=== PATIENT | female | born 2000 | race Caucasian/White ===

== ENCOUNTER → 2020-06-30 13:14 | Outpatient (CLI) | payer OTHER, MEDICAID, SELFPAY ==
--- NOTE | 2020-06-30 16:48 | SP.MBSS_ITS ---
Modified Barium Swallow - Patient Information Study Date: 06/30/20 Study Time: 13:20 Direct Billable Minutes: 70 Total Minutes procedure & reportin Diagnosis: Dysphagia (R13.12) Referring Physician: Osmin Hughes Reason for Referral: The patient is a 19 year old female referred for a modified barium swallow (MBS) study to objectively assess the patients oropharyngeal swallow function under fluoroscopy secondary to the diagnosis of Mowat Andrew syndrome. Her mother reports that she has been refusing thin liquids over the past few months, though will consume nectar thickened. She does appear to tolerate pureed textures, though at times this can fluctuate. She is completely dependent with feeding, though prior to the pandemic she was able to drink from a cup with success. She has appeared to regress throughout the adjustments in her school schedule secondary to the COVID-19 pandemic, which has also resulted in changes in her caregiver staff. Her mother reports no recent pulmonary based complications, no changes in weight (mild increase). Medical History: Mowat Andrew syndrome, non-verbal status, blind, seizure disorder, pulmonary stenosis, kidney disease, gastroesophageal reflux disease, pharyngitis, status post tonsillectomy. - Penetration-Aspiration Scale Score Aldine thickened liquids via cup (single sip): Result: 1= does not enter airway Pudding Result: 1= does not enter airway Thin liquid - 5 mL tsp.: (1) Result: 1= does not enter airway Thin Liquid Result: 1= does not enter airway - Oral Phase Labial Seal: Interlabial escape, no progression to anterior lip Bolus Transport/Lingual Motion: Brisk tongue motion Oral Residue: Trace residue lining oral structures - Pharyngeal Phase Initiation of Pharyngeal Swallow: Bolus head in pyriforms Soft Palate Elevation: No bolus between soft palate and pharyngeal wall Laryngeal Elevation: Partial superior movement thyroid cart/partial apprx aryt- epig petiole Anterior Hyoid Excursion: No anterior movement Epiglottic Movement: Complete inversion Laryngeal Vestibule Closure at Height of Swallow: Complete; no air/contrast in laryngeal vestibule Pharyngeal Stripping Wave: Present - diminished Pharyngoesophageal Segment Opening: Parital distension and partial duration; parital obstruction of flow Tongue Base Retraction: Trace column of contrast between tongue base & post. pharyngeal wall Pharyngeal Residue: Complete pharyngeal clearance - Diagnosis/Impression Diagnosis: Dysphagia (R13.12) Impression: The patient presents with mild to moderate oropharyngeal dysphagia (DSRS: 3; DCS: D0), with no presence of penetration or aspiration secondary to the diagnosis of Mowat Andrew syndrome. She demonstrates a rather quick oral transition of the bolus to the pharyngeal arena which leads to pharyngeal dyssynchrony and would elevate her likelihood for an aspiration related event to occur particularly with suboptimal positioning and larger bolus sizes. Solid textures were held, as her mother repo rts that there is no reasonable assumption that she will succeed with solids based on experience. The study was limited by inconsistent participation from the patient, which was known heading into the study (she did participate better than was anticipated), with limited trials completed due to patient refusal. Primary concerns appear to center more on behavioral based intake concerns vs. a mechanically based dysphagia, as there is a possibility that she has some form of texture / taste aversions, though more likely she may require behavioral interventions focusing on caregiver training (particularly if there are multiple caregivers that are not experienced with the patient) and implementation of compensatory equipment that focuses on bolus flow reductions, which will likely require trial and error through clinical judgement to identify appropriate flow adjustments. - Recommendations Comment: DIET TEXTURE RECOMMENDATIONS: pureed textured (IDDSI: 4), thin liquid diet (IDDSI: 0) diet RECOMMENDED COMPENSATORY STRATEGIES: direct supervision with assistance, reduced bolus volume / rate of ingestion with use of bolus flow restricted devices as a ppropriate, seated upright at 90 degrees during PO intake, remain upright for 30-60 minutes post meal (GERD precaution) Education Completed: 1. Described result of evaluation., 4. Family/caregivers understand evaluation & agree w/ goals & tx plan. - Image Count: [id number] - Status Active ST Patient: Not Active - Contact Information [facility] Speech Therapy:: Rod Hameed M.A., MARIJA-PAINTING INSTRUCTOR, CBIS MBSImP Certified, LSVT Certified [facility] Speech-Language Pathology Department Email: [email or web address]
== END ==
PROVIDERS: PCP Pediatrics; Referring Provider Pediatrics; Visit Provider Pediatrics
DX: R13.10 Dysphagia, unspecified (principal)
CPT/HCPCS: 74230; 92611

== ENCOUNTER → 2022-01-06 | Outpatient (CLI) | payer OTHER, MEDICAID, SELFPAY ==
--- NOTE | 2022-01-06 09:35 | RAD_ITS ---
STUDY: UPPER GI SERIES. REASON FOR EXAM: Female, 21 years old. ALTERED APPETITE RADIATION DOSAGE (If Supplied By Facility): CTDIvol = ( ) mGy, DLP = ( ) mGycm. Individualized dose optimization techniques were used for this CT.? FLUOROSCOPY TIME (if supplied): ( 22 seconds ) minutes/seconds. 26 images were obtained. TECHNIQUE: Limited study due to the patient''s physical condition. COMPARISON: None. FINDINGS: There is circumferential narrowing of the distal esophagus at the gastroesophageal junction. Correlation with endoscopy is recommended. Limited visualization of the stomach was obtained. No amount is seen. RAD/Upper GI Single Contrast IMPRESSION: Circumferential narrowing of the distal esophagus at the gastroesophageal junction. Correlation with endoscopy is recommended. Electronically Signed: Kenney Briggs MD at 10:54 EDT ,
== END | disposition home or self-care (01) ==
PROVIDERS: PCP Pediatrics; Referring Provider Pediatrics; Visit Provider Pediatrics
DX: R63.8 Other symptoms and signs concerning food and fluid intake (principal)
CPT/HCPCS: 74240

== ENCOUNTER 2023-10-24 10:23 | Emergency (ER) | payer OTHER, MEDICAID, SELFPAY ==
[2023-10-24 10:24] VITALS: BP 80/66; PULSE 95; RESP 16; TEMP 36.4; O2SAT 99
--- NOTE | 2023-10-24 10:32 | EX.ED.VIS.UR ---
HPI HPI - URI History of Present Illness Chief Complaint: Cold Sx Informant: parent Limited: other (Patient is nonverbal.) Onset/Context/Timing Onset: Days (10) Context: Gradual Onset Timing: Continuous Associated Symptoms Associated Symptoms: Positive for Headache and Sinus Pressure; Negative for Vomiting, Diarrhea, Nonproductive cough, Hemoptysis or Productive Cough Narrative Narrative: Patient presents with increased agitation and sinus drainage that has been getting worse over the past 10 days. Patient is nonverbal. Mother states the patient has been more agitated like she is in pain. Mother states that patient started with some brown sinus drainage 10 days ago. Mother denies any fevers or chills. Mother also states that the patient fell on the bus going to her workshop while she was sitting in her wheelchair. Patient hit her head and right ribs at that time. Mother also states that the patient has been having more urinary accidents. Mother states patient is only partially potty trained. ROS ROS ED Review of Systems ROS Unobtainable: due to mental condition and due to mental status Constitutional Constitutional ED: Denies chills or fever(s) PFSH PFSH Home Medications lansoprazole 30 mg capsule,delayed release (Prevacid) 30 mg PO BID 05/19/13 [History Last Taken 05/19/13] levetiracetam 1,000 mg tablet 1,000 mg PO Q12H 05/19/13 [History Last Taken 05/19/13] nitrofurantoin macrocrystal 50 mg capsule 50 mg PO DAILY 05/19/13 [History Last Taken 05/19/13] polyethylene glycol 3350 17 gram oral powder packet 17 g PO BID 05/19/13 [History Last Taken 05/19/13] psyllium husk (aspartame) 3.4 gram oral powder packet (Metamucil Fiber Singles) 1 packet PO DAILY 05/19/13 [History Last Taken 05/19/13] promethazine 12.5 mg rectal suppository (Promethegan) 12.5 mg RECTAL Q6H PRN PRN Vomiting ##10 05/20/13 [Rx Last Taken Unknown] Allergy/AdvReac Type Severity Reaction Status Date / Time cefixime [From Suprax] Allergy Other Verified 10/24/23 10:27 cefprozil [From Cefzil] Allergy Hives Verified 10/24/23 10:27 ceftriaxone Allergy Unknown Verified 10/24/23 10:27 oxcarbazepine Allergy Hives Verified 10/24/23 10:27 [From Trileptal] piperacillin Allergy Hives Verified 10/24/23 10:27 Surgical History (Updated 10/24/23 @ 10:[address] Daniel Blackburn DO) History of tonsillectomy and adenoidectomy Hx of valvuloplasty Social History Smoking Status: Never smoker EXAM Physical Exam Const Vital Signs: 10/24/23 10:24 10/24/23 10:24 10/24/23 10:32 Temperature 97.5 F L 97.5 F L Temperature Source Temporal Temporal Pulse Rate 95 95 Respiratory Rate 16 16 Respiratory Effort Normal Non-Labored Respiratory Pattern Tachypnea Blood Pressure 80/66 L 80/66 L Blood Pressure Mean 70 70 Pulse Ox 99 99 Oxygen Delivery Method Room Air Room Air Positive well nourished and well developed General Appearance ED: well developed and NAD HEENT Reports moist mucous membranes Neck supple and no JVD Resp normal respiratory effort and clear to auscultation bilaterally Cardio Rate: regular rate Rhythm: regular rhythm GI non-distended Palpation: soft Extremity full ROM Neuro no sensory deficits noted Sensorium / Orientation: alert Motor Exam: strength 5/5 throughout Psych Attitude: agitated MDM MDM MDM Narrative Medical decision making narrative: Differential diagnosis includes closed head injury, sinusitis, rib contusion, rib fracture, urinary tract infection, and viral illness. CT scan of the brain will be obtained to assess for intracranial bleeding and sinusitis. Chest x-ray will be obtained to assess for rib fracture and pneumothorax. Urinalysis will be obtained to assess for urinary tract infection and hematuria. COVID-19, influenza, and RSV PCR will be obtained to assess for viral infection. Lab Data Attestation: I reviewed the patient's lab results. Lab results narrative: Urinalysis was reviewed. There is no evidence of urinary tract infection or hematuria. COVID-19 PCR was reviewed and was negative. Influenza PCR was reviewed and was negative for influenza A and influenza B. RSV PCR was reviewed and was positive. Labs: Laboratory Results - last 24 hr 10/24/23 11:05 Urine Color Yellow Urine Clarity Sl. 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 Electronically Signed: Kenney Briggs MD at 12:03 EDT , Chest X-Ray 10/24/23 11:22 IMPRESSION: Normal x-ray examination of the chest. Electronically Signed: Kenney Briggs MD at 12:03 EDT , PA and lateral chest x-ray was obtained. There are 2 views. On my independent interpretation, lung wolfe are clear. There is normal cardiac silhouette. Bony thorax is normal. There is no acute process noted. Radiologist also interpreted the x-ray and agrees. CT scan of the brain was obtained. 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 There is no acute intracranial abnormality noted. There is no evidence of intracranial bleeding or stroke. This was interpreted by the radiologist was also independently reviewed by myself. Treatment and Re-Evaluation Narrative: Mother was advised of the findings. Mother was advised to continue having the patient drink fluids. Mother was instructed to use Tylenol or ibuprofen as needed for any fevers. Mother was instructed to follow-up with patient's primary care physician in 5 to 7 days. Mother understood and was agreeable with the plan. All questions were answered. Discharge Plan Triage Chief Complaint: Cold Sx ED Provider: Daniel Blackburn Dx/Rx/DC Orders Clinical Impression: Respiratory syncytial virus (RSV) infection Instructions: RSV (Respiratory Syncytial Virus) Prescriptions: No Action nitrofurantoin macrocrystal 50 MG capsule 50 mg PO DAILY polyethylene glycol 3350 17 GM powder in packet 17 g PO BID lansoprazole [Prevacid] 30 MG capsule 30 mg PO BID levetiracetam 1,000 MG tablet 1,000 mg PO Q12H psyllium husk (aspartame) [Metamucil Fiber Singles] 1 PACKET powder in packet 1 packet PO DAILY promethazine [Promethegan] 12.5 MG suppository 12.5 mg RECTAL Q6H PRN PRN (Reason: Vomiting) Qty: 10 0RF Primary Care Provider: Osmin Hughes Referrals: Osmin Hughes DO [Primary Care Provider] - 5-7 Days Disposition Disposition: Home, Self Care
--- NOTE | 2023-10-24 11:01 | CT_ITS ---
STUDY: CT BRAIN WITHOUT CONTRAST REASON FOR EXAM: Female, 23 years old. Recent head injury. RADIATION DOSAGE (If Supplied By Facility): CTDIvol = ( 44.99 ) mGy, DLP = ( 1133.57 ) mGycm TECHNIQUE: Transaxial CT imaging of the brain was performed without administration of intravenous contrast material. Individualized dose optimization techniques were used for this CT. COMPARISON: No relevant priors. FINDINGS: Normal soft tissue structures. Normal calvarium. Normal size ventricles and extra-axial spaces for the patient''s age. Normal white matter tracts of the cerebral hemispheres. Normal basal ganglia and thalami. Normal brainstem. Normal cerebellum. 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 There is no intracranial hemorrhage. There are no findings of an acute ischemic infarction. Normal visualized paranasal sinuses. Dense calcification of the right orbit. 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 Electronically Signed: Kenney Briggs MD at 12:03 EDT ,
[2023-10-24 11:15] LABS: Bacteria 0 SEEN /hpf (None Seen); Color, Urine Yellow (Yellow); Glucose, Dipstick Normal (Normal); Ketone-Dipstick Negative (Negative); Leukocyte Esterase-Dipstick Negative /ul (Negative); Mucous, Urine 0 SEEN /hpf (<or=2+); Nitrite-Dipstick Negative (Negative); Occult Blood-Urine Negative /ul (Negative); Protein-Dipstick Negative (Negative); Red Blood Cells-Urine 0 SEEN /hpf (0-5); Specific Gravity, Urine 1.015 (1.002-1.030); Urine Bilirubin Dipstick Negative (Negative); Urine Clarity Sl. Cloudy (Clear); Urine Urobilinogen Normal (Normal); White Blood Cells 0 SEEN /hpf (0-5)
--- NOTE | 2023-10-24 11:22 | RAD_ITS ---
STUDY: X-RAY CHEST REASON FOR EXAM: Female, 23 years old. Chest pain TECHNIQUE: PA and lateral views of the chest. COMPARISON: Comparison is made with prior study dated May 19, 2013. FINDINGS: The lungs are clear and expanded. There is no demonstrated pleural abnormality. Normal size heart. Normal mediastinum and dajuan. Normal visualized pulmonary arteries. Normal visualized aortic arch and descending thoracic aorta. Normal visualized thoracic spine. Normal visualized ribs, clavicles, and shoulders. There is no demonstrated abnormality of the visualized soft tissue structures of the upper abdomen. RAD/Chest PA and Lateral IMPRESSION: Normal x-ray examination of the chest. Electronically Signed: Kenney Briggs MD at 12:03 EDT ,
[2023-10-24 11:25] LABS: Squamous Epithelial Cells - UA 0-5 SEEN /hpf (5-10)
== END 2023-10-24 12:59 | disposition home or self-care (01) ==
PROVIDERS: Emergency Provider Emergency Medicine; PCP Pediatrics; Visit Provider Emergency Medicine
DX: J06.9 Acute upper respiratory infection, unspecified (principal); Q04.0 Congenital malformations of corpus callosum; R51.9 Headache, unspecified; B97.4 Respiratory syncytial virus as the cause of diseases classified elsewhere
CPT/HCPCS: 70450; 71046; 81001; 87631; 99282

== ENCOUNTER 2024-09-17 08:46 | Day surgery (SDC) | payer OTHER, MEDICAID, SELFPAY ==
--- NOTE | 2024-09-08 10:48 | PAT.ANESEVAL ---
Pre-Assessment Diagnosis/Proposed Procedure Planned Operative Procedure(s): (L) Excision left thigh mass Anesthesia History Anesthesia History - licensing and registration director: Anesthesia History - licensing and registration director Hx Hospitalization No 09/08/24 09:20 Any Problems With Anesthesia Yes: PONV 09/08/24 09:20 Cholinesterase deficiency No 09/08/24 09:20 You/Your Family Experience No 09/08/24 09:20 fever (hyperthermia) with Relationship Recent Exposure to Contagious Disease Does patient have nerve No 09/08/24 09:20 stimulator Patient instructed to have device shut off --Does patient have Pacemaker or ICD? When Was Last Pacemaker Check QUESTION #4 FULL TEXT: You/Your Family Experience fever (hyperthermia) with Anesthesia Last Oral Intake Last Oral intake: Last Oral Intake NPO since Meds taken in AM with sips of water? Meds patient instructed to take am of surgery PONV PONV - licensing and registration director: PONV - licensing and registration director Female Yes 09/08/24 09:20 HX of Motion Sickness No 09/08/24 09:20 HX of N/V After Surgery Yes 09/08/24 09:20 Non-Smoker Yes 09/08/24 09:20 Duration of Surgery greater Yes 09/08/24 09:20 than 60 minutes Number of Risk Factors 4 09/08/24 09:20 PONV Score Severe Risk 09/08/24 09:20 Height & Weight Height & Weight: Anesthesia: Height & Weight Height 4 ft 11 in 08/22/24 14:37 Respiratory Assessment Respiratory Assessment - licensing and registration director: Respiratory Tract Infection Hx - licensing and registration director Hx Respiratory Tract Infection No 09/08/24 09:20 STOP Sleep Apnea STOP Sleep Apnea - licensing and registration director: STOP Sleep Apnea - licensing and registration director Hx Hypertension No 09/08/24 09:20 Hx Sleep Apnea No 09/08/24 09:20 CPAP BIPAP Do you snore loudly (louder No 09/08/24 09:20 than talking or can be heard Do you often feel tired/ No 09/08/24 09:20 fatigued/ sleepy during daytime? Has anyone observed you stop No 09/08/24 09:20 breathing during sleep? STOP Results Negative 09/08/24 09:20 QUESTION #5 FULL TEXT : Do you snore loudly (louder than talking or can be heard through closed doors)? Tobacco Use History Tobacco Use History - licensing and registration director: Tobacco Use History - licensing and registration director Tobacco Use Smoking Status Never smoker 09/08/24 09:20 Hx Tobacco Use No 09/08/24 09:20 Years Smoking Packs Smoked per Day Smoking Cessation Date was within the last 15 years Hx Smoking Cessation Date Hx Smoking Cessation Counseling Hematologic Medial History Hematologic Hx - licensing and registration director: Hematologic Medical Hx - photography colorist Hx of Blood Transfusion No 09/08/24 09:20 Hx of Transfusion in last 3 No 09/08/24 09:20 Months Date of Last Transfusion (if within last 3 months) Ever experience any problems No 09/08/24 09:20 with transfusion(s)? Specify any problems Hx of Preganancy in last 3 No 09/08/24 09:20 Months Nurse Filling Out Transfusion MGRIFFITH 09/08/24 09:20 & Questions: Date: 09/08/24 09/08/24 09:20 Time: 09:25 09/08/24 09:20 Patient unable to answer at this time (ie. confused, unrespo /Reproduction History /Reproductive History - licensing and registration director: /Reproductive Hx- licensing and registration director Hx Now No 09/08/24 09:20 Gestational Age (in weeks): EDC: Hx Hx Para Hx Section SAB No 09/08/24 09:20 [facility] Medical History (Updated 09/08/24 @ 09:58 by Briana Briscoe) History of pulmonary artery stenosis Blind PONV (postoperative nausea and vomiting) Anxiety Uses wheelchair Bladder disease Low iron Dietary restriction Non-smoker History of echocardiogram 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 GERD (gastroesophageal reflux disease) Seizures Heart murmur Frequent UTI Seasonal allergies Constipation Home Medications ?Medication ?Instructions ?Recorded ?Last Taken ?Type polyethylene glycol 3350 17 gram 17 g PO BID 05/19/13 05/19/13 History oral powder packet levetiracetam 1,000 mg tablet 1,000 mg PO Q12H 08/22/24 Unknown History TRUADAPT 1 tab PO BID 09/08/24 Unknown History ascorbic acid (vitamin C) 1,000 mg 1 g PO DAILY 09/08/24 Unknown History tablet (C-1000) calcium 187.5 mg capsule 187.5 mg PO DAILY 09/08/24 Unknown History cetirizine 10 mg tablet (24Hour 10 mg PO DAILY 09/08/24 Unknown History Allergy) chlorpheniramine-phenylpropan ER 8 1 cap PO TID 09/08/24 Unknown History mg-75 mg capsule,extended release cholecalciferol (vitamin D3) 125 125 mcg PO .QOD 09/08/24 Unknown History mcg (5,000 unit) tablet (Vitamin D3) cinnamon bark 500 mg capsule 500 mg PO DAILY 09/08/24 Unknown History (Cinnamon) cranberry fruit 450 mg tablet 450 mg PO DAILY 09/08/24 Unknown History (cranberry) elderberry fruit 200 mg capsule 200 mg PO DAILY 09/08/24 Unknown History herbal complex no.174 450 mg 450 mg PO DAILY 09/08/24 Unknown History capsule (Echinacea and Goldenseal) levetiracetam 250 mg tablet 1,000 mg PO .QAM 09/08/24 Unknown History (Keppra) levetiracetam 750 mg tablet 1,250 mg PO QHS 09/08/24 Unknown History (Keppra) melatonin 10 mg capsule 10 mg PO QHS 09/08/24 Unknown History multivitamin 1 tab PO DAILY 09/08/24 Unknown History pseudoephedrine HCl 30 mg tablet 60 mg PO Q6H 09/08/24 Unknown History psyllium husk 0.4 gram capsule 0.4 g PO BID 09/08/24 Unknown History (Daily Fiber) valerian 750 mg-passion flower 100 1 tab PO QHS 09/08/24 Unknown History mg-hops 25 [id number] tablet vitamin B complex-folic acid 50 1 tab PO DAILY 09/08/24 Unknown History mcg tablet vitamin K2 100 mcg capsule 100 mcg PO DAILY 09/08/24 Unknown History zinc 50 mg tablet 50 mg PO DAILY 09/08/24 Unknown History Allergy/AdvReac Type Severity Reaction Status Date / Time cefixime (From Suprax) Allergy Other Verified 09/08/24 09:00 cefprozil (From Cefzil) Allergy Hives Verified 09/08/24 09:00 oxcarbazepine (From Allergy Hives Verified 09/08/24 09:00 Trileptal) Family History Grandfather Cancer Father Hypertension Mother High cholesterol CVA (cerebral vascular accident) Grandmother CVA (cerebral vascular accident) Hypertension Bleeding disorder Thyroid disorder Surgical History (Updated 09/08/24 @ 09:23 by Briana Briscoe) History of tooth extraction History of esophagogastroduodenoscopy (EGD) S/P ureteral reimplantation Hx of valvuloplasty History of tonsillectomy and adenoidectomy Social History Smoking Status: Never smoker Audit: Pertinent Findings Pertinent Findings Echo (EF%) pertinent findings: 01/23/2024 note VSD spontaneously closed PFO last echo suggested possible to ASD's but cath data does not show significant shunt Consult pertinent findings: August 27, 2024 cardiology status post pulmonary balloon valvuloplasty x 2 with good results mild residual pulmonary valve stenosis stable from cardiac standpoint no cardiac contraindication to surgery no SBE prophylaxis required no cardiac contraindication to anesthesia or sedation Pulmonary function results/spirometer pertinent findings: nl chest xray 10/24/23 Recommendation Anesthesia Recommendation Anesthesia recommendation: OPTIMIZED for anesthesia
[2024-09-17] VITALS (8 sets, daily range): BP systolic 100–117; BP diastolic 52–89; PULSE 80–94; RESP 16–22; TEMP 36.2–36.8; O2SAT 100; BMI 19.1
--- NOTE | 2024-09-17 | IMM_PTH ---
PATIENT: RAMIRO BOWMAN LOC: [facility] [place] U#:[id number] AGE/SX: 24/F ROOM: RE09/17/[address]: Dr. Yanick Reyes MD : 2000 BED: DIS: 09/17/2024 SPEC #: [id number] RECD: 09/22/24 12:21 STATUS: ALISON REQ #: [id number] VENKATESH: 09/17/24 00:[address]: Yanick Reyes DEPT: IMMUNOHISTOCHEMISTRY RECD BY: Laith Velasco ENTERED: 09/22/24 12:22 SP TYPE: IMMUNO OTHR DR: Dr. Alvarado Benitez DO Tissues: Thigh, NOS Procedures: SMA (add) CK7 (add) CK8 (add) DESMIN (add) KI-67 (add) Vimentin (add) Pankeratin (initial) MELAN-A (add) S-100 (add) PHYSICIAN & INSTITUTION [place] [id number] SPECIMEN INFORMATION: Tissue Source: Left thigh mass Clinical Info: Neoplasm of uncertain behavior of connective and other soft tissue Specimen Number: [id number] CPT code: 41443,68481 METHODOLOGY: Deparaffinized sections of prefer/formalin-fixed tissue or PAP/DQ stained slides are incubated with monoclonal/polyclonal antibodies/oligonucleotide probes. Localization is made via biotin free immunoperoxidase method. Appropriate controls are performed and reacted as expected. Results on target cell population are indicated in the following table: RESULTS: ANTIBODY / CLONE RESULT Block 5 AE1-3 (AE1/AE3/PCK26) positive, focal CK7 (OV-TL12/30) positive CK8 (84trufR13) positive Vimentin (V9) negative Actin (1A4) negative Desmin (CE-R-11) negative Melan A (A103) negative S-100 (4C4.9) negative Ki-67 (30-9) positive, low These tests were developed and their performance characteristics determined by [facility]. They may not have been cleared or approved by the U.S. Food and Drug Administration. The FDA has determined that such clearance or approval is not necessary. The above immunohistochemical/dualISH markers are ordered and reviewed by the Pathologist. INTERPRETATION: Left thigh mass, excision: Solid cystic nodular hidradenoma. This case has been reviewed in consultation with Dr. Link who concurs with the above diagnosis. IDC:[email or web address] 09/23/2024
--- NOTE | 2024-09-17 08:56 | PCM.PRE.AN2 ---
ASA Classification* ASA Classification ASA Classification: 3 Assessment & Plan Anesthesia* Anesthesia Assessment Anesthesia Assessment: Discussed sedation and/or anesthesia options, risks, benefits, and alternatives with patient/parents/legal guardian/POA. Questions invited. The patient/parents/legal guardian/POA seems to understand and agrees to proceed with anesthesia plan. Reviewed the physical assessment, medical history, allergy history and patient home medications list prior to surgery/procedure/anesthetic and documented any changes. Performed airway and anesthesia risk assessments. Anesthesia Type Anesthesia Type: General (NO SUX. ET) Anesthesia Focused Assessment* Airway Assessment Mouth opens: >3 cm Mallampati Score: II Focused Labs Anesthesia Preop lab: CBC WBC 9.4 K/mm3 (4.4-11.0) 05/19/13 22:20 05/19/13 RBC 4.17 M/mm2 (4.2-5.4) L 05/19/13 22:20 05/19/13 Hgb 13.4 g/dl (12.0-15.0) 05/19/13 22:20 05/19/13 Hct 37.8 % (37-47) 05/19/13 22:20 05/19/13 Plt Count 247 K/mm3 (150-450) 05/19/13 22:20 05/19/13 CHEMISTRY Potassium 3.9 mmol/L (3.5-5.1) 05/19/13 22:20 05/19/13 Sodium 145 mmol/L (136-145) 05/19/13 22:20 05/19/13 BUN 13 mg/dL (7-18) 05/19/13 22:20 05/19/13 Creatinine 0.8 mg/dL (0.6-1.0) 05/19/13 22:20 05/19/13 Glucose 78 mg/dL (70-110) 05/19/13 22:20 05/19/13 COAG Pre-Assessment Diagnosis/Proposed Procedure Planned Operative Procedure(s): (L) Excision left thigh mass Anesthesia History Anesthesia History - razor sharpener: Anesthesia History - razor sharpener Hx Hospitalization No 09/08/24 09:20 Any Problems With Anesthesia Yes: PONV 09/08/24 09:20 Cholinesterase deficiency No 09/08/24 09:20 You/Your Family Experience No 09/08/24 09:20 fever (hyperthermia) with Relationship Recent Exposure to Contagious Disease Does patient have nerve No 09/08/24 09:20 stimulator Patient instructed to have device shut off --Does patient have Pacemaker or ICD? When Was Last Pacemaker Check QUESTION #4 FULL TEXT: You/Your Family Experience fever (hyperthermia) with Anesthesia Last Oral Intake Last Oral intake: Last Oral Intake NPO since Meds taken in AM with sips of water? Meds patient instructed to take am of surgery PONV PONV - razor sharpener: PONV - razor sharpener Female Yes 09/08/24 09:20 HX of Motion Sickness No 09/08/24 09:20 HX of N/V After Surgery Yes 09/08/24 09:20 Non-Smoker Yes 09/08/24 09:20 Duration of Surgery greater Yes 09/08/24 09:20 than 60 minutes Number of Risk Factors 4 09/08/24 09:20 PONV Score Severe Risk 09/08/24 09:20 Height & Weight Height & Weight: Anesthesia: Height & Weight Height 4 ft 11 in 08/22/24 14:37 Respiratory Assessment Respiratory Assessment - razor sharpener: Respiratory Tract Infection Hx - razor sharpener Hx Respiratory Tract Infection No 09/08/24 09:20 STOP Sleep Apnea STOP Sleep Apnea - razor sharpener: STOP Sleep Apnea - razor sharpener Hx Hypertension No 09/08/24 09:20 Hx Sleep Apnea No 09/08/24 09:20 CPAP BIPAP Do you snore loudly (louder No 09/08/24 09:20 than talking or can be heard Do you often feel tired/ No 09/08/24 09:20 fatigued/ sleepy during daytime? Has anyone observed you stop No 09/08/24 09:20 breathing during sleep? STOP Results Negative 09/08/24 09:20 QUESTION #5 FULL TEXT : Do you snore loudly (louder than talking or can be heard through closed doors)? Tobacco Use History Tobacco Use History - razor sharpener: Tobacco Use History - razor sharpener Tobacco Use Smoking Status Never smoker 09/08/24 09:20 Hx Tobacco Use No 09/08/24 09:20 Years Smoking Packs Smoked per Day Smoking Cessation Date was within the last 15 years Hx Smoking Cessation Date Hx Smoking Cessation Counseling Hematologic Medial History Hematologic Hx - razor sharpener: Hematologic Medical Hx - washer machine Hx of Blood Transfusion No 09/08/24 09:20 Hx of Transfusion in last 3 No 09/08/24 09:20 Months Date of Last Transfusion (if within last 3 months) Ever experience any problems No 09/08/24 09:20 with transfusion(s)? Specify any problems Hx of Preganancy in last 3 No 09/08/24 09:20 Months Nurse Filling Out Transfusion MGRIFFITH 09/08/24 09:20 & Questions: Date: 09/08/24 09/08/24 09:20 Time: 09/08/24 09:20 Patient unable to answer at this time (ie. confused, unrespo /Reproduction History /Reproductive History - razor sharpener: /Reproductive Hx- razor sharpener Hx Now No 09/08/24 09:20 Gestational Age (in weeks): EDC: Hx Hx Para Hx Section SAB No 09/08/24 09:20 Active Medications Active Medications: Current Medications Generic Name Dose Route Start Last Admin Trade Name Freq PRN Reason Stop Dose Admin Sodium Chloride 1,000 mls @ 15 mls/hr 09/17/24 08:55 IV 09/22/24 22:14 .Q48H [facility] Protocol PFSH Medical History History of pulmonary artery stenosis Blind PONV (postoperative nausea and vomiting) Anxiety Uses wheelchair Bladder disease Low iron Dietary restriction Non-smoker History of echocardiogram 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 GERD (gastroesophageal reflux disease) Seizures Heart murmur Frequent UTI Seasonal allergies Constipation Home Medications ?Medication ?Instructions ?Recorded ?Last Taken ?Type polyethylene glycol 3350 17 gram 17 g PO BID 05/19/13 05/19/13 History oral powder packet levetiracetam 1,000 mg tablet 1,000 mg PO Q12H 08/22/24 Unknown History TRUADAPT 1 tab PO BID 09/08/24 Unknown History ascorbic acid (vitamin C) 1,000 mg 1 g PO DAILY 09/08/24 Unknown History tablet (C-1000) calcium 187.5 mg capsule 187.5 mg PO DAILY 09/08/24 Unknown History cetirizine 10 mg tablet (24Hour 10 mg PO DAILY 09/08/24 Unknown History Allergy) chlorpheniramine-phenylpropan ER 8 1 cap PO TID 09/08/24 Unknown History mg-75 mg capsule,extended release cholecalciferol (vitamin D3) 125 125 mcg PO .QOD 09/08/24 Unknown History mcg (5,000 unit) tablet (Vitamin D3) cinnamon bark 500 mg capsule 500 mg PO DAILY 09/08/24 Unknown History (Cinnamon) cranberry fruit 450 mg tablet 450 mg PO DAILY 09/08/24 Unknown History (cranberry) elderberry fruit 200 mg capsule 200 mg PO DAILY 09/08/24 Unknown History herbal complex no.174 450 mg 450 mg PO DAILY 09/08/24 Unknown History capsule (Echinacea and Goldenseal) levetiracetam 250 mg tablet 1,000 mg PO .QAM 09/08/24 Unknown History (Keppra) levetiracetam 750 mg tablet 1,250 mg PO QHS 09/08/24 Unknown History (Keppra) melatonin 10 mg capsule 10 mg PO QHS 09/08/24 Unknown History multivitamin 1 tab PO DAILY 09/08/24 Unknown History pseudoephedrine HCl 30 mg tablet 60 mg PO Q6H 09/08/24 Unknown History psyllium husk 0.4 gram capsule 0.4 g PO BID 09/08/24 Unknown History (Daily Fiber) valerian 750 mg-passion flower 100 1 tab PO QHS 09/08/24 Unknown History mg-hops 25 [id number] tablet vitamin B complex-folic acid 50 1 tab PO DAILY 09/08/24 Unknown History mcg tablet vitamin K2 100 mcg capsule 100 mcg PO DAILY 09/08/24 Unknown History zinc 50 mg tablet 50 mg PO DAILY 09/08/24 Unknown History Allergy/AdvReac Type Severity Reaction Status Date / Time cefixime (From Suprax) Allergy Other Verified 09/08/24 09:00 cefprozil (From Cefzil) Allergy Hives Verified 09/08/24 09:00 oxcarbazepine (From Allergy Hives Verified 09/08/24 09:00 Trileptal) Family History Grandfather Cancer Father Hypertension Mother High cholesterol CVA (cerebral vascular accident) Grandmother CVA (cerebral vascular accident) Hypertension Bleeding disorder Thyroid disorder Surgical History History of tooth extraction History of esophagogastroduodenoscopy (EGD) S/P ureteral reimplantation Hx of valvuloplasty History of tonsillectomy and adenoidectomy Social History Smoking Status: Never smoker Review of Systems (Anesthesia) ROS Narrative System reviewed and no additional complaints, except as documented.
[2024-09-17 09:16] LABS: Internal QC Validated? YES +Cl - CLEAR BKGD; Pregnancy, Urine Negative Negative; Record Kit Lot#,Urine Preg 856586
[2024-09-17] MEDS: 0.9% Normal Saline (1000mL) 1,000 ML 15 ML IV (09:24)
--- NOTE | 2024-09-17 10:00 | MASS_PTH ---
PATIENT: RAMIRO BOWMAN [place] [facility] [id number] AGE/SX: 24/F ROOM: RE09/17/[address]: Dr. Yanick Reyes MD : 2000 BED: DIS: 09/17/2024 SPEC #: [id number] RECD: 09/17/24 13:11 STATUS: ALISON REViviane #: [id number] VENKATESH: 09/17/24 10:[address]: Yanick Reyes DEPT: SURGICAL PATHOLOGY RECD BY: Alexia Pérez ENTERED: 09/18/24 07:15 SP TYPE: Mass OTHR DR: Dr. Alvarado Benitez, DO Tissues: Thigh, NOS Procedures: Surgery Specimen Level IV HEADER OPERATION: Excision left thigh mass PRE-OP DIAGNOSIS: Neoplasm of uncertain behavior of connective and other soft tissue TISSUE SUBMITTED: Left thigh mass *long suture - lateral, short suture- superior* MICROSCOPIC DIAGNOSIS Left thigh mass, excision: Solid cystic nodular hidradenoma, completely excised. Focal changes consistent with previous biopsy site. See comment. 09/22/2024 COMMENT Immunohistochemistry ([id number]) supports the above diagnosis. The lesion is 0.1cm away from the closest medial margin. This case has been reviewed in consultation with Dr. Link who concurs with the above diagnosis. IDC:PW MICROSCOPIC DESCRIPTION Slides are reviewed. GROSS DESCRIPTION Received in fixative is one container labeled with the patient's name and designated Left thigh mass. The specimen consists of a mathew-white skin ellipse measuring 5 x 2.5cm and up to 2cm in thickness. The specimen is oriented by sutures. Long suture- lateral, short suture- superior. The specimen is inked as follows: superior tip- yellow, inferior tip- green, lateral margin- black, medial margin- blue. Sections reveal a hemorrhagic cystic lesion measuring 3.5 x 1.5 x 1cm. The lesion is close to the medial margin of the specimen. Oil Fire Specialist sections are submitted in seven cassettes. Cassette 1 contains the superior and inferior tips. The lesion is submitted in its entirety. Sections will be submitted after additional fixation. 09/18/2024 TC:1 CPT:26439
--- NOTE | 2024-09-17 10:33 | PCM.HP.STD ---
HPI - General HPI Narrative Elizabeth Briscoe 24yr old Female presents to office with mother and father with referral from [facility] (Dr. Wing) for consult on a left thigh lesion. She has had it punch biopsied that demonstrated portions of a solid/cystic ductal epithelial neoplasm. The histologic differential diagnosis includes solid cystic nodular hidradenoma, as well as possibly a precursor and cystadenoma. Since only portions of the lesion are visualized, and extends to the peripheral and deep margins, a conservative but complete reexcision is recommended for management and complete histopathologic evaluation of the lesion. Dr. 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 Patient lives with her parents and depends on them for help with all activities of daily living. With regards to the lesion, Elizabeth's parents state that the lesion will burst occasionally describing as bloody with pus. Of note patient also has a history of VSD and other cardiac problems that have not needed any intervention but have been monitored by [facility] (she sees them yearly). No personal history of blood clots however the patient's mother has had retinal artery occlusion secondary to clot. The patient's grandmother had blood clots. Caprini score of the patient is 4 (with positive family history of clots giving 3 points). Patient is not exposed to any nicotine products. CURRENT ENCOUNTER Current Encounter (DATE OF SURGERY H&P UPDATE): I saw and examined the patient this morning in pre-operative holding. We discussed risks and benefits of today's surgery WITH HER MOTHER (ZACK) and she would like to proceed. NO CHANGE in health history since last seen and evaluated. Ready to proceed with surgery. [facility] Medical History History of pulmonary artery stenosis Blind PONV (postoperative nausea and vomiting) Anxiety Uses wheelchair Bladder disease Low iron Dietary restriction Non-smoker History of echocardiogram 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 GERD (gastroesophageal reflux disease) Seizures Heart murmur Frequent UTI Seasonal allergies Constipation Home Medications ?Medication ?Instructions ?Recorded ?Last Taken ?Type polyethylene glycol 3350 17 gram 17 g PO BID 05/19/13 05/19/13 History oral powder packet levetiracetam 1,000 mg tablet 1,000 mg PO Q12H 08/22/24 Unknown History TRUADAPT 1 tab PO BID 09/08/24 Unknown History ascorbic acid (vitamin C) 1,000 mg 1 g PO DAILY 09/08/24 Unknown History tablet (C-1000) calcium 187.5 mg capsule 187.5 mg PO DAILY 09/08/24 Unknown History cetirizine 10 mg tablet (24Hour 10 mg PO DAILY 09/08/24 Unknown History Allergy) chlorpheniramine-phenylpropan ER 8 1 cap PO TID 09/08/24 Unknown History mg-75 mg capsule,extended release cholecalciferol (vitamin D3) 125 125 mcg PO .QOD 09/08/24 Unknown History mcg (5,000 unit) tablet (Vitamin D3) cinnamon bark 500 mg capsule 500 mg PO DAILY 09/08/24 Unknown History (Cinnamon) cranberry fruit 450 mg tablet 450 mg PO DAILY 09/08/24 Unknown History (cranberry) elderberry fruit 200 mg capsule 200 mg PO DAILY 09/08/24 Unknown History herbal complex no.174 450 mg 450 mg PO DAILY 09/08/24 Unknown History capsule (Echinacea and Goldenseal) levetiracetam 250 mg tablet 1,000 mg PO .QAM 09/08/24 09/17/24 History (Keppra) levetiracetam 750 mg tablet 1,250 mg PO QHS 09/08/24 09/16/24 History (Keppra) melatonin 10 mg capsule 10 mg PO QHS 09/08/24 Unknown History multivitamin 1 tab PO DAILY 09/08/24 Unknown History pseudoephedrine HCl 30 mg tablet 60 mg PO Q6H 09/08/24 Unknown History psyllium husk 0.4 gram capsule 0.4 g PO BID 09/08/24 Unknown History (Daily Fiber) valerian 750 mg-passion flower 100 1 tab PO QHS 09/08/24 Unknown History mg-hops 25 [id number] tablet vitamin B complex-folic acid 50 1 tab PO DAILY 09/08/24 Unknown History mcg tablet vitamin K2 100 mcg capsule 100 mcg PO DAILY 09/08/24 Unknown History zinc 50 mg tablet 50 mg PO DAILY 09/08/24 Unknown History Allergy/AdvReac Type Severity Reaction Status Date / Time cefixime (From Suprax) Allergy Other Verified 09/17/24 09:08 cefprozil (From Cefzil) Allergy Hives Verified 09/17/24 09:08 oxcarbazepine (From Allergy Hives Verified 09/17/24 09:08 Trileptal) Family History Grandfather Cancer Father Hypertension Mother High cholesterol CVA (cerebral vascular accident) Grandmother CVA (cerebral vascular accident) Hypertension Bleeding disorder Thyroid disorder Surgical History History of tooth extraction History of esophagogastroduodenoscopy (EGD) S/P ureteral reimplantation Hx of valvuloplasty History of tonsillectomy and adenoidectomy Social History Smoking Status: Never smoker Vital Signs Vital Signs Vital Signs: 09/17/24 09:08 09/17/24 09:08 Temperature 97.2 F L Temperature Source Temporal Pulse Rate 90 Respiratory Rate 18 Respiratory Pattern Normal Blood Pressure 101/52 L Blood Pressure Mean 68 Blood Pressure Source Monitor Blood Pressure Position Semi-Fowlers Blood Pressure Location Right Arm Pulse Ox 100 Oxygen Delivery Method Room Air Weight Weight: 94 lb 12.78 oz Body Mass Index (BMI) 19.1 Physical Exam Narrative 3x 4 cm mass on the left upper lateral thigh. Feels fixed, not mobile. No drainage. No signs of infection. No groin or popliteal lymphadenopathy on my exam. I marked the mass today Results Lab / Micro Data Labs: Laboratory Results - last 24 hr 09/17/24 08:55: Urine Test Negative Assessment & Plan Assessment/Plan (1) Neoplasm of uncertain behavior of connective and other soft tissue: PLAN: Plan I talked the patient extensively about the risks of surgery, including bleeding, infection, damage to surrounding structures, surgical site dehiscence and wound formation, poor scaring, need for wound care, need for repeat operations, failure to obtain the desired result, DVT/PE (especially in the setting of a VSD), stroke/hypovolemia, and the risks of anesthesia including . The benefits and alternatives of this surgery were also discussed. All of their questions were answered, and they agreed to proceed with surgery. Given the location and ease of closure (tissue redundancy), plan for Wide local excision with 2 cm margins. Plan to obtain cardiac clearance for surgery. I will also discuss personally my plans for excision with Dr. Wing. INTERVAL H&P PLAN, DATE OF SURGERY: We will proceed with surgery today. Cardiology/pulmonary clearance obtained I spoke with Dr. Wing about the lesion/neoplasm. The patient's guardian, Mrs. Briscoe (her mother), is in agreement with our plan for excision around the tumor (will take ~2 cm margins since a lot of tissue redundancy to prevent need for further operations in case of possible more aggressive tumor). I marked the spot with her mother and she agreed with the site raphael.
[2024-09-17] MEDS: Clindamycin 900 MG/50 ML BAG 75 MG IV (11:09)
[2024-09-17] MEDS: Bupiv/Epi 0.25% 30 ML Vial (11:11)
--- NOTE | 2024-09-17 11:50 | PCM.POST.ANE ---
Anesthesia: Postop Eval I Current Vital Signs Temperature: 97.9 F Pulse Rate: 92 Blood Pressure: 117/62 Respiratory Rate: 22 Pulse Ox: 100 Assessment Airway patent: Yes Spontaneous unlabored respirations: Yes nausea: No Vomiting: No Anesthesia Complication: No Fluid Hydration Crystalloid volume administer (ml): 600 Total IV fluid infused: 600 Progress Note Post-operative progress note: report to RN, parents to bedside. Anesthesia document: Postop Eval 1 completed: Yes
--- NOTE | 2024-09-17 12:16 | POSTOPAN2_ITS ---
Anesthesia Postop Eval I Sum Postop Eval Completion status Anesthesia document: Postop Eval 1 completed: Yes Anesthesia Postop Eval I Summary Anesthesia Postop Eval I Summary: Anesthesia Postop Eval I: Assessment Summary Airway patent Yes 09/17/24 11:52 CUSTOMER CARE CONSULTANT.DemetrioGEN Spontaneous unlabored Yes 09/17/24 11:52 CUSTOMER CARE CONSULTANT.MAYRA respirations Mental status nausea No 09/17/24 11:52 CUSTOMER CARE CONSULTANT.DemetrioGEN Vomiting No 09/17/24 11:52 CUSTOMER CARE CONSULTANT.MAYRA Anesthesia Postop Eval I: Fluid Summary Crystalloid volume administer 600 09/17/24 11:52 CUSTOMER CARE CONSULTANT.DemetrioGEN (ml) Colloids volume administered ( ml) Blood Product volume administered (ml) Total IV fluid infused 600 09/17/24 11:52 CUSTOMER CARE CONSULTANT.MAYRA Anesthesia Postop Eval I: Summary Notes Anesthesia Complication No 09/17/24 11:52 CUSTOMER CARE CONSULTANT.MAYRA Anesthesia Complication Comment: Post-operative progress note report to RN, 09/17/24 11:52 CUSTOMER CARE CONSULTANT.MAYRA parents to bedside . Anesthesia: Postop Eval II Evaluation Mental status: Awake Pain Level: 0 nausea: No Vomiting: No
--- NOTE | 2024-09-17 12:16 | PCM.POSTANE2 ---
Anesthesia Postop Eval I Sum Postop Eval Completion status Anesthesia document: Postop Eval 1 completed: Yes Anesthesia Postop Eval I Summary Anesthesia Postop Eval I Summary: Anesthesia Postop Eval I: Assessment Summary Airway patent Yes 09/17/24 11:52 FOOD TRADES ASSISTANTS.DemetrioGEN Spontaneous unlabored Yes 09/17/24 11:52 FOOD TRADES ASSISTANTS.MAYRA respirations Mental status nausea No 09/17/24 11:52 FOOD TRADES ASSISTANTS.DemetrioGEN Vomiting No 09/17/24 11:52 FOOD TRADES ASSISTANTS.MAYRA Anesthesia Postop Eval I: Fluid Summary Crystalloid volume administer 600 09/17/24 11:52 FOOD TRADES ASSISTANTS.DemetrioGEN (ml) Colloids volume administered ( ml) Blood Product volume administered (ml) Total IV fluid infused 600 09/17/24 11:52 FOOD TRADES ASSISTANTS.MAYRA Anesthesia Postop Eval I: Summary Notes Anesthesia Complication No 09/17/24 11:52 FOOD TRADES ASSISTANTS.MAYRA Anesthesia Complication Comment: Post-operative progress note report to RN, 09/17/24 11:52 FOOD TRADES ASSISTANTS.MAYRA parents to bedside . Anesthesia: Postop Eval II Evaluation Mental status: Awake Pain Level: 0 nausea: No Vomiting: No
--- NOTE | 2024-09-17 12:21 | OP.PCM_ITS ---
Operative Report (Standard) Operative Information Date of Procedure: 09/17/24 Pre-Operative Diagnosis: Left thigh neoplasm of uncertain behavior Post-Operative Diagnosis: Same Surgery/Procedure Performed: 1) Excision of left thigh neoplasm 3 x 5 cm (CPT 53916) 2) Intermediate closure of left thigh neoplasm, 5 cm (82781) airframe design engineer: No Type of Anesthesia: General/Supplemental (20 CC OF 0.25% Marcaine with 1:200,000 epinephrine ) RN Documented Start/Stop Times: Operation Date: 09/17/24 10:00 Case Time Into Pre-Op 09/17/24 08:52 Out of Pre-Op 09/17/24 10:39 Anesthesia Start 09/17/24 10:46 Into Room 09/17/24 10:46 Procedure Start 09/17/24 11:11 Procedure End 09/17/24 11:28 Anesthesia End 09/17/24 11:37 Out of Room 09/17/24 11:37 Into Recovery 09/17/24 11:39 Out of Recovery 09/17/24 12:02 Into Phase II Recovery 09/17/24 12:03 Out of Phase II 09/17/24 12:52 Procedure Start Time: 11:11 Procedure Stop Time: 11:28 Select all DRAINS/GRAFTS/IMPLANTS that apply: None Estimated Blood Loss: minimal Specimen collected: Yes Description of specimen(s) removed: Skin mass marked short superior, long lateral Description of surgery: INDICATIONS: Elizabeth Briscoe is a 24-year-old female with Mowat Andrew syndrome with a lesion in the left thigh that was biopsied by dermatology. The pathologist and machine feed operator recommended reexcision as it was uncertain of the diagnosis. We discussed risks of infection, bleeding, damage to surrounding structures, return of the mass and need for repeat surgeries, healing problems/dehiscence of the wound and need for wound care, and risks from anesthesia. OPERATIVE DETAILS: The patient was correctly identified in holding, and I marked them (the left thigh mass was confirmed with her parents, the patient agreed with the site marking). They were taken back to the procedure room where they were administered general for anesthesia and placed in the supine positioning. Once appropriate level of anesthesia was obtained, the site was prepped and draped in sterile fashion. A 15 blade scalpel was used to make a direct incision over the mass, and dissection was carried out with tenotomy scissors around the mass/lesion and Bovie electrocautery. It was in the subcutaneous and skin layer. Dissection was carried out with tenotomy scissors around the mass and it was removed in in 1 piece. Hemostasis was obtained with Bovie electrocautery. The wound was irrigated with copious amounts of normal saline. It measured 3 x 5 centimeters. The mass was sent to pathology. Attention was then turned to intermediate closure of the wound, which was 5 centimeters long. Deep sutures were placed with 2-0 PDS and 3-0 PDS, followed by running subcuticular 3-0 monocryl. Prineo tape was applied. The patient tolerated the procedure well. POST-OPERATIVE PLAN: F/u in 1 week for wound check and to discuss pathology. Surgical Findings: Large extension into the subcutaneous tissue beneath the skin, which was clinically compltetely excised Complications Complications: No Admit VTE Documentation VTE Mechan Device Prophylaxis: SCD's VTE Pharm Prophylaxis ordered?: No
== END 2024-09-17 12:52 | disposition home or self-care (01) ==
LOC: SDC 08:48 → AC 08:49
PROVIDERS: Anesthesiology; PCP Student in an Organized Health Care Education/Training Program; Referring Provider Surgery Plastic and Reconstructive Surgery; Visit Provider Surgery Plastic and Reconstructive Surgery
PROC: (CPT 27337; principal; 2024-09-17 09:45)
DX: D23.72 Other benign neoplasm of skin of left lower limb, including hip (principal); K21.9 Gastro-esophageal reflux disease without esophagitis
CPT/HCPCS: 27337; 00400; 81025; 88305; 88341; 88342; J2405